=== PATIENT | male | born 1950 | race Caucasian/White ===

== ENCOUNTER 2017-06-18 22:25 | Observation (INO) | payer MEDICARE, BC ==
[~2017-06-18 22:25] MED LIST: ISOVUE-370 76%-LOCM 1 ML ONE
[2017-06-18 23:02] LABS: Bilirubin Negative (Negative); Blood, Urine Trace (Negative); Clarity CLEAR (Clear); Glucose, Urine (Dipstick) Negative (Negative); Leukocyte Negative (Negative); Nitrite Negative (Negative); Protein, Urine (Dipstick) Negative (Neg-Trace); Specific Gravity, Urine 1.013 (1.002-1.036)
[2017-06-18 23:04] LABS: Bacteria/HPF None Seen HPF (None Seen); Hyaline Casts/LPF 0-3 HYALINE CAST LPF (0-3 Hyaline); RBC/HPF 0-3 HPF (0-3); Squamous Epithelial None Seen HPF (0-3); WBC/HPF 0-3 HPF (0-3)
[2017-06-18 23:16] LABS: #Lymphocytes 1.4 thou/uL (1.20-3.40); #Monocytes 1.2 thou/uL (0.11-0.59); #Neutrophils 6.9 thou/uL (1.40-6.50); %Basophils 0.2 % (0.0-1.0); %Eosinophils 0.3 % (0.0-10.0); %Lymphocytes 14.5 % (21.0-51.0); %Monocytes 12.5 % (0.0-10.0); %Neutrophils 72.5 % (42.0-75.0); Hemoglobin 16.9 g/dL (14.0-18.0); Mean Corpuscular HGB CONC 34.8 g/dL (32.0-36.0); Mean Corpuscular Hemoglobin 31.3 pg (27.0-31.0); Mean Platelet Volume 5.9 fL (7.4-10.4); Platelet Count 261 thou/uL (130-400); RBC Distribution Width 11.3 % (11.5-14.5); Red Blood Cell (RBC) Count 5.41 mill/uL (4.70-6.10); White Blood Cell (WBC) Count 9.5 thou/uL (4.8-10.8)
[2017-06-18 23:37] LABS: ALT (SGPT) 22 U/L (8-55); AST (SGOT) 19 U/L (5-34); Albumin 4.4 g/dL (3.4-4.8); Alkaline Phosphatase 58 U/L (40-150); Anion Gap 14 mmol/L (10-20); BUN (Urea Nitrogen) 14 mg/dL (8.4-25.7); Bilirubin, Total 0.8 mg/dL (0.2-1.2); Calc. Creatinine Clearance 0 mL/min (70-130); Calcium 10.3 mg/dL (7.8-10.44); Carbon Dioxide 26 mmol/L (23-31); Chloride 102 mmol/L (98-107); Estimated GFR-MDRD 73; Globulin 3.2 g/dL (2.4-3.5); Glucose 121 mg/dL (80-115); Lipase 17 U/L (8-78); Magnesium 2.2 mg/dL (1.6-2.6); Potassium 3.6 mmol/L (3.5-5.1); Protein, Total 7.6 g/dL (5.8-8.1); Sodium 138 mmol/L (136-145)
[2017-06-18] MEDS ORDERED: Morphine 4 MG/ML VIAL ONE (23:37)
[2017-06-18] MEDS ORDERED: Ondansetron ODT 4 MG TAB ONE (23:38)
[2017-06-18 23:40] LABS: CKMB 0.8 ng/mL (0-6.6); Troponin I Less than 0.010 ng/mL (< 0.028)
--- NOTE | 2017-06-19 00:05 | CT ---
ABDOMEN AND PELVIS CT SCAN WITH IV CONTRAST: HISTORY: A 66-year-old male with a history of abdominal pain. FINDINGS: The lung bases are clear. There is a small cyst in the liver. Status post cholecystectomy. Markedl y fluid-filled, dilated, and distended stomach, as well as abnormally dilated proximal small bowel wi th air and fluid levels, evidence for small bowel obstruction. There is a nondilated distal ileum. There is occasional colonic diverticulosis without acute diverticulitis. No abscess or abnormal flui d collection. IMPRESSION: Evidence for small bowel obstruction with dilated small bowel and stomach. The etiology of the obstr uction is presumed to be from adhesions. There are numerous surgical changes around the aorta, as we ll as post cholecystectomy and other numerous surgical clips in the retroperitoneum. No evidence for other significant acute process. No abscess or significant abnormal fluid collection. POS: [facility]
[2017-06-19] MEDS ORDERED: Morphine 4 MG/ML VIAL ONE (00:51)
[2017-06-19] MEDS ORDERED: Lidocaine Viscous Sol 2% 15 ml UD Cup ONE (02:12)
[2017-06-19] MEDS ORDERED: Ondansetron HCl/PF 4 MG/2 ML Vial IVP PRN (02:39)
[2017-06-19] MEDS ORDERED: Ondansetron ODT 4 MG TAB SL PRN (02:39)
[2017-06-19] MEDS ORDERED: Lactated Ringer's 1,000 ML IV SCH (02:39)
[2017-06-19] MEDS ORDERED: Fentanyl 100 MCG/2 ML VIAL SLOW IVP PRN (02:40)
[2017-06-19 02:43] VITALS: BMI 27.6
[2017-06-19] MEDS ORDERED: MD-Gastroview 120 ML BOT ONE (06:45)
--- NOTE | 2017-06-19 08:40 | HP ---
HISTORY: Mateo Beverly is a 66-year-old male patient who experienced onset 2 days ago of abdomin al pain, distention, nausea, and vomiting. He felt bloated. His last bowel movement was yesterday. Last flatus was earlier this morning. He was seen in the emergency room and evaluated and noted to have a white count of 9, hemoglobin 16. Basic metabolic profile, comprehensive metabolic profile unr emarkable. CAT scan of abdomen and pelvis revealed changes of a markedly dilated stomach and upper s mall bowel changes suggestive of possible bowel obstruction. CAT scan states that the patient has ch anges reflective of prior cholecystectomy, but patient denies having had a prior cholecystectomy. ALLERGIES: None. TOBACCO: None. ALCOHOL: Rarely. MEDICATIONS: Calcium carbonate, Tylenol p.r.n. PAST SURGICAL HISTORY: In the late the patient had a laparotomy, lymph node dissection perform ed by the [facility] for a left orchiectomy. He did not have chemotherapy or radiation therapy. He had an L4 disk surgery. He has never had a colonoscopy. He is unaware of having had a cholecys tectomy in the past. PAST MEDICAL HISTORY: Testicular cancer, status post left orchiectomy, lumbar disk disease history. He does not have chronic pain. SOCIAL HISTORY: He is . 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 REVIEW OF SYSTEMS: [place] noncontributory otherwise. PHYSICAL EXAMINATION: VITAL SIGNS: Height 5 foot 10, 193 pounds, 27 BMI, 98.6, 90, 165/82, 16. HEENT: Unremarkable. Sclerae nonicteric. SKIN: Nonjaundiced. LUNGS: Clear to auscultation. CARDIAC: Regular rate and rhythm without murmur or gallop. ABDOMEN: Soft, nontympanitic, nondistended. NG tube in place. Bowel sounds present. EXTREMITIES: Unremarkable. No ankle edema. LABORATORY: Comprehensive metabolic profile is unremarkable. Lipase and liver function tests are no rmal. White count 9, hemoglobin 16.9. ASSESSMENT AND PLAN: The patient has history of nausea, vomiting, abdominal distention, but he feels much better. He has passed flatus earlier this morning. He had a bowel movement yesterday. On CAT scan. He had a markedly distended stomach and proximal bowel. There were changes on his CAT scan s uggestive of prior cholecystectomy, although he is unaware of this in the past. Would recommend a 2- view abdomen this morning and small bowel follow through. Perhaps we can get rid of his NG tube late r today. He has not had any prior history of biliary symptoms. I do not think gallbladder ultrasoun d is worth pursuing. Await small bowel follow through.
--- NOTE | 2017-06-19 10:08 | RAD ---
TWO VIEWS OF THE ABDOMEN AND UPRIGHT VIEW OF THE CHEST: COMPARISON: CT abdomen/pelvis 06/18/17. HISTORY: Small bowel obstruction. FINDINGS: Supine and upright views of abdomen and upright view of the chest were performed. There are mildly d ilated loops of small bowel in the left abdomen. Air is seen in the colon. Contrast is seen in the urinary bladder from recent contrast examination. Multiple surgical clips overlie the abdomen. An N G Tube is seen with its tip in the stomach. The cardiomediastinal silhouette is normal in size. There is no evidence of consolidation, mass, or pleural effusion. IMPRESSION: Mildly dilated loops of small bowel may be secondary to partial small bowel obstruction. POS: [facility]
--- NOTE | 2017-06-19 11:03 | RAD ---
SMALL BOWEL FOLLOW THROUGH: Comparison: CT abdomen/pelvis 06-18-17 History: Small bowel obstruction. FINDINGS: A small bowel follow through was performed with Gastrografin. Small bowel loops are normal in caliber . There are multiple surgical clips in the abdomen. The contrast passed through the small bowel loops to the colon by 45 minutes and was seen in the left colon at 1 hour. IMPRESSION: No evidence of complete bowel obstruction. POS: [facility]
[2017-06-19 16:36] VITALS: BP 145/93; TEMP 98
--- NOTE | 2017-06-19 20:17 | DIS ---
His small bowel follow through was normal. His NG tube is removed. He is tolerating a regular diet. His vital signs remained stable. He has had multiple bowel movements. At this point, his abdomen is soft and benign. The etiology of his complaints are uncertain. I have recommended he have an out patient colonoscopy with [facility]. He will follow up with me as needed. He wi ll be discharged home tonight. Diet and activity as tolerated.
== END 2017-06-19 18:30 | disposition home or self-care (01) ==
LOC: ERS 22:25 → SURG A 06-19 00:33
PROVIDERS: ADMIT Specialist; ATTEND Specialist
DX: R10.9 Unspecified abdominal pain (principal); R11.2 Nausea with vomiting, unspecified; R14.0 Abdominal distension (gaseous); Z79.899 Other long term (current) drug therapy; Z85.47 Personal history of malignant neoplasm of testis
CPT/HCPCS: 74022; 74177; 74250; 80053; 82553; 83690; 83735; 84484; 85025; 93005; 96361 ×2; 96374; 96376; 99285; G0378; 81003; 81015; A4216; J2270; Q0162